=== PATIENT | male | born 1940 | race Caucasian/White ===

== ENCOUNTER → 2017-05-30 | Outpatient (CLI) | payer MEDICARE, OTHER ==
--- NOTE | 2017-05-31 07:44 | MRI ---
MRI left hip without contrast INDICATION: Left hip pain radiating into the groin area no specific injury TECHNIQUE: Noncontrast MR imaging left hip FINDINGS: There is moderate osteoarthrosis of both hips. There is a fairly large left hip effusion with mild synovitis. Multifocal subchondral edema/cystic change in the femoral head. No advanced osteonecrosis or fracture. Tenosynovitis is likely reactive synovitis related to the chondrosis and osteoarthrosis of the hip. There is fairly advanced joint space narrowing left greater than right hips. Diffuse labral degeneration is noted. Mild iliopsoas bursal edema. There is mild cam morphology of the femoral neck suggesting chronic hip impingement. IMPRESSION: Osteoarthrosis left greater than right hip Large left hip effusion with synovitis most likely reactive No acute fracture or osteonecrosis Electronically signed by: Rah Fields MD 05/31/2017 7:42 AM [facility]
== END ==
LOC: MRI 09:30
PROVIDERS: ATTEND Family Medicine
DX: M25.552 Pain in left hip (principal); M16.12 Unilateral primary osteoarthritis, left hip; M25.452 Effusion, left hip

== ENCOUNTER → 2017-06-05 | Outpatient (CLI) | payer MEDICARE, OTHER ==
--- NOTE | 2017-06-05 10:22 | RAD ---
EXAM DESCRIPTION: Chest,2 Views CLINICAL HISTORY: z01.811 PRE OP COMPARISON: Chest radiograph dated January 16, 2016 TECHNIQUE: PA/lateral FINDINGS: Cardiac silhouette and pulmonary vascularity are within normal limits. Lung volumes are hyperinflated, compatible with COPD. Lungs are clear without focal consolidations. No significant pleural effusion. No pneumothorax. Degenerative changes of the lower thoracic spine. IMPRESSION: 1. No radiographic evidence for acute cardiopulmonary process. 2. Other findings as above. Electronically signed by: Austin Beth MD 06/05/2017 10:[address] [facility]
== END ==
LOC: RESP 09:41
PROVIDERS: ATTEND Orthopaedic Surgery
DX: Z01.812 Encounter for preprocedural laboratory examination (principal)